=== PATIENT | female | born 1980 | race Caucasian/White ===

== ENCOUNTER → 2017-03-24 | Day surgery (SDC) | payer OTHER ==
[~2017-03-24] VITALS: Ht 147.3 cm; Wt 77.1 kg
[~2017-03-24] MED LIST: AMOXICILLIN500 MG PO; ANAPROX DS550 MG PO; CILOXAN 5 ML5 M1 OT; DARVOCET N 1001 TAB PO; FLEXERIL10 MG PO; FLONASE 0.05% 121 EA NAS; K-Dur 20MEQ20 MEQ PO; LASIX20 MG PO; MACROBID100 M1 PO; MOTRIN800 MG PO; PREDNICOT20 MG PO; PREDNISONE20 MG PO
--- NOTE | ~2017-03-24 | O ---
[place], [place] OPERATIVE NOTE NAME: RICH CHAPMAN UNIT #: [id number] ROOM: DOCTOR: NATACHA NEVES MD BIRTHDATE: [birth year] DOS: 03/24/2017 PREOPERATIVE DIAGNOSIS: Chronic otitis media with effusion. POSTOPERATIVE DIAGNOSIS: Chronic otitis media with effusion. OPERATION: BMT. SURGEON: Dr. Neves. ANESTHESIA: General. OPERATIVE FINDINGS AND PROCEDURE: The patient was taken to the operating room for BMT. Following induction of general anesthesia, the patient was positioned supine on the OR table and draped in the standard fashion for ear surgery. The surgical microscope was brought into the operative field. The right ear was examined. Myringotomy was performed. Standard Russel tympanostomy tube was inserted, and topical Ciprofloxacin drops were instilled. Next, the left ear was examined. Left myringotomy was performed. Standard Russel tympanostomy tube was inserted, and topical Ciprofloxacin drops were instilled. The patient tolerated the procedure well, was awakened, and transported to PACU in satisfactory condition. NATACHA NEVES MD CM:OPRECORD:OPERATIVE NOTE [id number] NATACHA NEVES MD 03/24/17 1137 interface
[2017-03-24 10:17] VITALS: BP 168/77
[2017-03-24 10:42] VITALS: BP 118/52
[2017-03-24 10:58] VITALS: BP 114/67
[2017-03-24 11:15] VITALS: BP 114/67
== END | disposition home or self-care (01) ==
LOC: SDC 03-19 08:00
DX: H65.493 Other chronic nonsuppurative otitis media, bilateral (principal); I42.9 Cardiomyopathy, unspecified; Z98.890 Other specified postprocedural states

== ENCOUNTER → 2018-03-10 | Outpatient (CLI) | payer OTHER | END | disposition home or self-care (01) | LOC: CARD 08:28 | DX: H93.A3 Pulsatile tinnitus, bilateral (principal) ==

== ENCOUNTER → 2018-04-16 | Outpatient (CLI) | payer OTHER | END | disposition home or self-care (01) | LOC: CARD 09:30 | DX: I42.0 Dilated cardiomyopathy (principal); I50.22 Chronic systolic (congestive) heart failure ==

== ENCOUNTER 2019-04-13 00:29 | Emergency (ER) | payer OTHER ==
[~2019-04-13] VITALS: Ht 147.3 cm; Wt 89.8 kg
[~2019-04-13 00:29] MED LIST changes: +CLARITIN10 MG PO; +FLONASE ALLERG9.9 ML NAS; +PREDNISONE10 MG PO; +ZOFRAN4 MG PO
[2019-04-13] MEDS ORDERED: AUGMENTIN 875-875 MG PO (01:02)
[2019-06-26] MEDS ORDERED: DELTASONE20 M1 PO (15:48)
== END 2019-04-13 01:52 | disposition home or self-care (01) ==
LOC: ED 00:29
DX: H66.92 Otitis media, unspecified, left ear (principal); Z91.041 Radiographic dye allergy status; Z79.899 Other long term (current) drug therapy; Z96.22 Myringotomy tube(s) status

== ENCOUNTER 2019-07-25 12:49 | Emergency (ER) | payer OTHER ==
[~2019-07-25] VITALS: Ht 144.7 cm; Wt 78.0 kg
[~2019-07-25 12:49] MED LIST changes: +AUGMENTIN 875-875 MG PO; +DELTASONE20 M1 PO
[2019-07-25] MEDS ORDERED: IBU600 M1 PO (14:50)
== END 2019-07-25 15:03 | disposition home or self-care (01) ==
LOC: ED 12:49
DX: S93.491A Sprain of other ligament of right ankle, initial encounter (principal); Z79.899 Other long term (current) drug therapy; Z91.041 Radiographic dye allergy status; X50.1XXA Overexertion from prolonged static or awkward postures, initial encounter; Y93.89 Activity, other specified; Y92.89 Other specified places as the place of occurrence of the external cause; Y99.9 Unspecified external cause status

== ENCOUNTER 2020-05-21 12:53 | Emergency (ER) | payer OTHER ==
[~2020-05-21] VITALS: Ht 147.3 cm; Wt 81.6 kg
[~2020-05-21 12:53] MED LIST changes: +IBU600 M1 PO
[2020-05-21 13:55] LABS: BASO % 0.3 % (0.0-1.0); EOS # 0.1 10*3/uL (0.0-0.4); EOS % 0.9 % (1.0-4.0); HEMATOCRIT 44.9 % (37.0-47.0); LYMPH # 1.9 10*3/uL (1.3-4.4); LYMPH % 13.6 % (27.0-41.0); MEAN CELL VOLUME 91.8 fl (81.0-99.0); MEAN CORPUSCULAR HGB 29.9 pg (27.0-31.0); MEAN CORPUSCULAR HGB CONC 32.5 g/dl (33.0-37.0); MEAN PLATELET VOLUME 9.6 fl (9.6-12.3); MONO # 0.7 10*3/uL (0.1-1.0); MONO % 4.8 % (3.0-9.0); PLATELET COUNT AUTOMATED 332 10*3/uL (130-400); RED BLOOD COUNT 4.89 10*6/uL (4.10-5.10); RED CELL DISTRI WIDTH 12.9 % (0-14.5); WHITE BLOOD COUNT 13.7 10*3/uL (4.8-10.8)
[2020-05-21 14:31] LABS: ALBUMIN 3.8 gm/dl (3.1-4.5); ALKALINE PHOSPHATASE 90 U/L (45-117); BUN 15 mg/dl (7-24); CHLORIDE 103 mmol/L (98-107); CREATININE 0.99 mg/dL (0.55-1.02); LIPASE 208 U/L (73-393); POTASSIUM 4.1 mmol/L (3.5-5.1); SGOT/AST 15 IU/L (3-35); SGPT/ALT 24 U/L (12-78); SODIUM 136 mmol/L (136-145)
[2020-05-21 17:30] LABS: BILIRUBIN NEGATIVE (NEGATIVE); BLOOD NEGATIVE (NEGATIVE); CLARITY CLOUDY (CLEAR); COLOR YELLOW (YELLOW); GLUCOSE NEGATIVE (NEGATIVE); KETONE 3+ (NEGATIVE); NITRITE NEGATIVE (NEGATIVE); SPECIFIC GRAVITY 1.015 (1.005-1.030); UROBILINOGEN 0.2 E.U./dl (0.2-1.0)
[2020-05-21 17:31] LABS: LEUKO ESTERASE NEGATIVE (NEGATIVE)
[2020-05-21 17:33] LABS: BACTERIA 2+; EPITHELIAL CELLS 16-20
[2020-05-21] MEDS ORDERED: ZOFRAN4 MG PO (18:08)
[2020-05-21] MEDS ORDERED: PEPCID20 MG PO (18:08)
== END 2020-05-21 18:13 | disposition home or self-care (01) ==
LOC: ED 12:53
PROVIDERS: Emergency Medicine
DX: K29.00 Acute gastritis without bleeding (principal); R11.2 Nausea with vomiting, unspecified; Z91.041 Radiographic dye allergy status; Z79.899 Other long term (current) drug therapy

== ENCOUNTER 2020-05-27 09:47 | Emergency (ER) | payer OTHER ==
[~2020-05-27] VITALS: Ht 147.3 cm; Wt 81.6 kg
[~2020-05-27 09:47] MED LIST changes: +PEPCID20 MG PO
[2020-05-27] MEDS ORDERED: NORCO 5-325 TA1 EACH PO (11:44)
[2020-05-27] MEDS ORDERED: MEDROL DOSEPAK4 MG PO (11:44)
== END 2020-05-27 12:03 | disposition home or self-care (01) ==
LOC: ED 09:47
DX: M54.16 Radiculopathy, lumbar region (principal); Z91.041 Radiographic dye allergy status; Z79.899 Other long term (current) drug therapy

== ENCOUNTER 2021-05-19 10:07 | Emergency (ER) | payer OTHER ==
[~2021-05-19] VITALS: Ht 147.3 cm; Wt 72.6 kg
[~2021-05-19 10:07] MED LIST changes: +MEDROL DOSEPAK4 MG PO; +NORCO 5-325 TA1 EACH PO
== END 2021-05-19 10:46 | disposition home or self-care (01) ==
LOC: ED 10:07
DX: S99.912A Unspecified injury of left ankle, initial encounter (principal); E66.9 Obesity, unspecified; Z79.899 Other long term (current) drug therapy; Z79.2 Long term (current) use of antibiotics; X50.1XXA Overexertion from prolonged static or awkward postures, initial encounter; Y93.01 Activity, walking, marching and hiking; Y92.89 Other specified places as the place of occurrence of the external cause; Y99.8 Other external cause status

== ENCOUNTER → 2022-01-27 | Outpatient (CLI) | payer OTHER | END | disposition home or self-care (01) | LOC: US 15:00 | PROVIDERS: ATTEND Family Medicine | DX: E01.0 Iodine-deficiency related diffuse (endemic) goiter (principal) ==

== ENCOUNTER → 2022-04-16 | Outpatient (CLI) | payer OTHER | END | disposition home or self-care (01) | LOC: D 09:38 | PROVIDERS: ATTEND Family Medicine | DX: I10 Essential (primary) hypertension (principal); E66.9 Obesity, unspecified; R73.03 Prediabetes ==

== ENCOUNTER 2022-05-25 14:14 | Emergency (ER) | payer OTHER ==
[~2022-05-25] VITALS: Wt 81.6 kg
[2022-05-25 15:09] LABS: BASO % 0.3 % (0.0-1.0); EOS # 0.2 10*3/uL (0.0-0.4); EOS % 1.1 % (1.0-4.0); HEMATOCRIT 48.1 % (37.0-47.0); LYMPH # 2.2 10*3/uL (1.3-4.4); LYMPH % 16.5 % (27.0-41.0); MEAN CELL VOLUME 94.9 fl (81.0-99.0); MEAN CORPUSCULAR HGB CONC 32.6 g/dl (33.0-37.0); MEAN PLATELET VOLUME 9.8 fl (9.6-12.3); MONO # 0.7 10*3/uL (0.1-1.0); MONO % 5.6 % (3.0-9.0); NEUT % 76.1 % (47.0-73.0); PLATELET COUNT AUTOMATED 335 10*3/uL (130-400); RED BLOOD COUNT 5.07 10*6/uL (4.10-5.10); RED CELL DISTRI WIDTH 12.6 % (0-14.5); WHITE BLOOD COUNT 13.2 10*3/uL (4.8-10.8)
[2022-05-25 15:28] LABS: ALKALINE PHOSPHATASE 136 U/L (45-117); BUN 14 mg/dl (7-24); CHLORIDE 107 mmol/L (98-107); CREATININE 0.94 mg/dL (0.55-1.02); POTASSIUM 3.7 mmol/L (3.5-5.1); SGOT/AST 29 IU/L (3-35); SGPT/ALT 49 U/L (12-78); SODIUM 141 mmol/L (136-145); TOTAL PROTEIN 8.2 gm/dL (6.4-8.2)
[2022-05-25 15:31] LABS: BILIRUBIN 1+ (Negative); BLOOD 1+ (Negative); CLARITY Cloudy (Clear); COLOR Dark Yellow (Yellow); GLUCOSE Negative (Negative); KETONE Negative (Negative); LEUKO ESTERASE 2+ (Negative); NITRITE Positive (Negative); SPECIFIC GRAVITY 1.015 (1.001-1.030)
[2022-05-25 16:09] LABS: WBC TNTC wbc/hpf (0-5)
[2022-05-25 16:10] LABS: BACTERIA 2+; EPITHELIAL CELLS 51-100
[2022-05-25] MEDS ORDERED: CEFUROXIME AXE500 MG PO (17:53)
[2022-05-25] MEDS ORDERED: Motrin,Rufen800 MG PO (17:53)
[2022-05-25] MEDS ORDERED: HYDROCODONE-AC1 EAC1 PO (17:53)
[2022-05-25] MEDS ORDERED: FLOMAX0.4 MG PO (17:53)
== END 2022-05-25 18:19 | disposition home or self-care (01) ==
LOC: ED 14:14
PROVIDERS: Physician Assistant
DX: N20.1 Calculus of ureter (principal); Z91.041 Radiographic dye allergy status; Z79.899 Other long term (current) drug therapy

== ENCOUNTER → 2023-03-11 | Outpatient (CLI) | payer OTHER ==
[~2023-03-11] MED LIST changes: +CEFUROXIME AXE500 MG PO; +FLOMAX0.4 MG PO; +HYDROCODONE-AC1 EAC1 PO; +Motrin,Rufen800 MG PO
[2023-03-11 10:58] LABS: BASO % 0.3 % (0.0-1.0); EOS # 0.2 10*3/uL (0.0-0.4); EOS % 2.1 % (1.0-4.0); HEMATOCRIT 46.7 % (37.0-47.0); LYMPH # 2.3 10*3/uL (1.3-4.4); LYMPH % 24.5 % (27.0-41.0); MEAN PLATELET VOLUME 9.1 fl (9.6-12.3); MONO # 0.7 10*3/uL (0.1-1.0); NEUT # 6.2 10*3/uL (2.3-7.9); NEUT % 65.6 % (47.0-73.0); PLATELET COUNT AUTOMATED 369 10*3/uL (130-400); RED BLOOD COUNT 4.97 10*6/uL (4.10-5.10); RED CELL DISTRI WIDTH 13.2 % (0-14.5); WHITE BLOOD COUNT 9.4 10*3/uL (4.8-10.8)
[2023-03-11 11:26] LABS: ALKALINE PHOSPHATASE 119 U/L (46-116); BUN 9 mg/dl (9-23); CHLORIDE 101 mmol/L (98-107); POTASSIUM 4.1 mmol/L (3.4-5.1); SGPT/ALT 53 U/L (10-49); TOTAL PROTEIN 7.2 gm/dL (6.0-8.0)
== END | disposition home or self-care (01) ==
LOC: LAB 10:05
PROVIDERS: ATTEND Internal Medicine
DX: R19.7 Diarrhea, unspecified (principal)

== ENCOUNTER 2023-03-25 13:30 | Emergency (ER) | payer OTHER ==
[2023-03-25 14:30] LABS: BASO % 0.4 % (0.0-1.0); EOS # 0.2 10*3/uL (0.0-0.4); HEMATOCRIT 46.4 % (37.0-47.0); LYMPH # 2.7 10*3/uL (1.3-4.4); LYMPH % 28.7 % (27.0-41.0); MEAN CELL VOLUME 93.9 fl (81.0-99.0); MEAN CORPUSCULAR HGB 30.8 pg (27.0-31.0); MEAN CORPUSCULAR HGB CONC 32.8 g/dl (33.0-37.0); MEAN PLATELET VOLUME 9.7 fl (9.6-12.3); MONO # 0.6 10*3/uL (0.1-1.0); MONO % 6.6 % (3.0-9.0); NEUT # 5.8 10*3/uL (2.3-7.9); PLATELET COUNT AUTOMATED 321 10*3/uL (130-400); RED BLOOD COUNT 4.94 10*6/uL (4.10-5.10); RED CELL DISTRI WIDTH 12.9 % (0-14.5); WHITE BLOOD COUNT 9.4 10*3/uL (4.8-10.8)
[2023-03-25 14:42] LABS: ACT PARTIAL THROMBO TIME 25.9 SECONDS (20.0-32.1)
[2023-03-25 14:52] LABS: BILIRUBIN Negative (Negative); BLOOD Negative (Negative); CLARITY Clear (Clear); COLOR Yellow (Yellow); GLUCOSE Negative (Negative); KETONE Trace (Negative); LEUKO ESTERASE Negative (Negative); NITRITE Negative (Negative); PH 5.5 (4.5-8.0); SPECIFIC GRAVITY >= 1.030 (1.001-1.030)
[2023-03-25 14:56] LABS: ALKALINE PHOSPHATASE 104 U/L (46-116); BUN 9 mg/dl (9-23); CHLORIDE 101 mmol/L (98-107); LIPASE 41 U/L (12-53); POTASSIUM 4.1 mmol/L (3.4-5.1); SGPT/ALT 29 U/L (10-49); TOTAL PROTEIN 7.1 gm/dL (6.0-8.0)
[2023-03-25 15:14] LABS: EPITHELIAL CELLS 16-20; MUCOUS 1+; RBC 0-2 rbc/hpf (0-2); WBC 0-2 wbc/hpf (0-5)
== END 2023-03-25 16:40 | disposition home or self-care (01) ==
LOC: ED 13:30
PROVIDERS: Internal Medicine
DX: R10.84 Generalized abdominal pain (principal); Z91.041 Radiographic dye allergy status; Z90.89 Acquired absence of other organs; Z98.890 Other specified postprocedural states

== ENCOUNTER → 2023-04-02 | Day surgery (SDC) | payer OTHER ==
[~2023-04-02] VITALS: Ht 121.9 cm
[2023-04-02 08:15] VITALS: BP 143/90
[2023-04-02 09:05] VITALS: BP 110/91
[2023-04-02 09:20] VITALS: BP 117/60
[2023-04-02 09:30] VITALS: BP 123/77
== END | disposition home or self-care (01) ==
LOC: SDC 03-26 11:30
PROVIDERS: ATTEND Surgery
DX: R19.7 Diarrhea, unspecified (principal); K29.50 Unspecified chronic gastritis without bleeding; I10 Essential (primary) hypertension; E78.00 Pure hypercholesterolemia, unspecified; E11.9 Type 2 diabetes mellitus without complications; F41.9 Anxiety disorder, unspecified; F32.A Depression, unspecified; M79.7 Fibromyalgia; M06.9 Rheumatoid arthritis, unspecified; Z90.89 Acquired absence of other organs; Z79.899 Other long term (current) drug therapy

== ENCOUNTER 2023-07-16 18:24 | Emergency (ER) | payer OTHER ==
[~2023-07-16] VITALS: Wt 77.1 kg
[2023-07-16] MEDS ORDERED: METFORMIN HYDR500 MG PO (19:35)
[2023-07-16] MEDS ORDERED: LEXAPRO5 M1 PO (19:35)
[2023-07-16] MEDS ORDERED: ZESTRIL10 MG PO (19:36)
[2023-07-16] MEDS ORDERED: AMOX-CLAV 875-1 EACH PO (19:51)
== END 2023-07-16 20:07 | disposition home or self-care (01) ==
LOC: ED 18:24
DX: J02.9 Acute pharyngitis, unspecified (principal); I10 Essential (primary) hypertension; E78.00 Pure hypercholesterolemia, unspecified; F41.9 Anxiety disorder, unspecified; F32.A Depression, unspecified; Z91.041 Radiographic dye allergy status; Z90.49 Acquired absence of other specified parts of digestive tract; Z98.890 Other specified postprocedural states

== ENCOUNTER 2024-02-27 21:38 | Emergency (ER) | payer OTHER ==
[~2024-02-27] VITALS: Ht 147.3 cm; Wt 78.0 kg
[~2024-02-27 21:38] MED LIST changes: +AMOX-CLAV 875-1 EACH PO; +LEXAPRO5 M1 PO; +METFORMIN HYDR500 MG PO; +ZESTRIL10 MG PO
[2024-02-27] MEDS ORDERED: methylPREDNISolone sod succ 125 MG VIAL IM ONE (22:25)
[2024-02-27] MEDS ORDERED: Motrin,Rufen800 MG PO (22:37)
== END 2024-02-27 23:03 | disposition home or self-care (01) ==
LOC: ED 21:38
DX: M79.672 Pain in left foot (principal); I10 Essential (primary) hypertension; E78.00 Pure hypercholesterolemia, unspecified; F41.9 Anxiety disorder, unspecified; F32.A Depression, unspecified; E11.9 Type 2 diabetes mellitus without complications; Z91.041 Radiographic dye allergy status; Z90.89 Acquired absence of other organs; Z98.890 Other specified postprocedural states

== ENCOUNTER 2024-03-07 14:09 | Emergency (ER) | payer OTHER ==
[~2024-03-07] VITALS: Ht 147.3 cm; Wt 79.4 kg
== END 2024-03-07 18:43 | disposition home or self-care (01) ==
LOC: ED 14:09
DX: S93.402A Sprain of unspecified ligament of left ankle, initial encounter (principal); S90.32XA Contusion of left foot, initial encounter; I10 Essential (primary) hypertension; E78.00 Pure hypercholesterolemia, unspecified; F41.9 Anxiety disorder, unspecified; F32.A Depression, unspecified; E11.9 Type 2 diabetes mellitus without complications; Z91.041 Radiographic dye allergy status; Z98.890 Other specified postprocedural states; Z90.89 Acquired absence of other organs; W19.XXXA Unspecified fall, initial encounter; Y93.89 Activity, other specified; Y92.89 Other specified places as the place of occurrence of the external cause; Y99.8 Other external cause status

== ENCOUNTER → 2025-05-05 | Outpatient (CLI) | payer OTHER | END | disposition home or self-care (01) | LOC: CT 13:54 | PROVIDERS: ATTEND Family Medicine | DX: K57.30 Diverticulosis of large intestine without perforation or abscess without bleeding (principal); K76.0 Fatty (change of) liver, not elsewhere classified; R30.0 Dysuria; R10.9 Unspecified abdominal pain ==